=== PATIENT | male | born 1985 | race African-American/Black ===

== ENCOUNTER 2019-11-14 23:40 | Emergency (ER) | payer MEDICAID ==
[~2019-11-14] VITALS: Ht 172.7 cm; Wt 80.1 kg
[2019-11-14 23:44] VITALS: BP 129/57
--- NOTE | 2019-11-15 00:05 | NUR ---
PT C/O L SHOULDER PAIN FOR 2-3 MONTHS REPORTS IT HAS BEEN FEELING WORSE THIS WEEK SO HE DECIDED TO BE EVALUATED. PT DENIES TRAUMA OR ANY OTHER C/O AT THIS TIME. FAMILY AT BS FOR SUPPORT. BED IN LOW POSITION, CALL LIGHT WITHIN REACH.
== END 2019-11-15 00:53 | disposition home or self-care (01) ==
LOC: ED 11-15
DX: M25.512 Pain in left shoulder (principal); Z72.89 Other problems related to lifestyle
CPT/HCPCS: 99283